=== PATIENT | female | born 1940 | race Caucasian/White ===

== ENCOUNTER → 2024-07-19 14:25 | Outpatient (REF) | payer OTHER, SELFPAY | LOC: HWRAD 14:25 | PROVIDERS: ATTENDING PHYSICIAN Obstetrics & Gynecology Gynecology; FAMILY PHYSICIAN Physician Assistant Medical | DX: Z78.0 Asymptomatic menopausal state (principal); Z12.31 Encounter for screening mammogram for malignant neoplasm of breast | CPT/HCPCS: 77063; 77067; 77080 ==

== ENCOUNTER 2024-09-21 09:44 | Emergency (ER) | payer OTHER, SELFPAY ==
[2024-09-21 09:47] VITALS: BP 187/88
[2024-09-21 10:07] VITALS: BMI 34.0
[2024-09-21 10:13] VITALS: BP 180/75
--- NOTE | 2024-09-21 10:14 | ED.GENMED ---
History of Present Illness
<Brenda Soto MD, Resident - Last Filed: 09/21/24 10:25>
General
Chief Complaint: Abdominal Pain
Time Seen by Provider: 09/21/24 09:53
History of Present Illness
History of Present Illness:
84-year-old female with past medical history of diverticulosis, hypothyroidism and endometrial cancer presenting to ED with lower abdominal pain since last night. Patient notes pain is intermittent and is not associated with movement or eating.
Notes constipation, last bowel movement was yesterday, and urinary frequency. Denies fever, chills, nausea vomiting, bloody stools, melena. Has not taken pain medications for her abdominal pain. No recent antibiotic use.
Past History
<Brenda Soto MD, Resident - Last Filed: 09/21/24 10:25>
Past History
ED Past Medical History: Hypothyroidism and Other (Diverticulosis)
ED Past Surgical History: Cholecystectomy and Gynecological (Hysterectomy, tubal ligation)
Social History
Personal:
Living: with family
Employment: Retired
Review of Systems
<Brenda Soto MD, Resident - Last Filed: 09/21/24 10:25>
Review of Systems
Constitutional: Reports no symptoms
EENT: Reports no symptoms
Respiratory: Reports no symptoms
Cardiac: Reports no symptoms
ABD/GI: Reports abdominal pain and constipated
: Reports frequency
Musculoskeletal: Reports edema (Bilateral lower extremities)
Skin: Reports no symptoms
Neurological: Reports no symptoms
Endocrine: Reports no symptoms
Hematologic/Lymphatic: Reports no symptoms
Psychiatric: Reports no symptoms
Phy Exam
<Brenda Soto MD, Resident - Last Filed: 09/21/24 10:25>
Physical Exam
Physical Exam:
GENERAL: Alert, in no apparent distress
EYE: pupils equal and reactive
NECK: Supple, no significant adenopathy.
ENT: o/p clr, mmm.
CARDIAC: Regular rate and rhythm .
LUNGS: Clear breath sounds bilaterally, no acute respiratory distress, no wheezes/rales/rhonchi
ABDOMEN: Soft, mild right lower quadrant tenderness, no r/g, no cvat
NEUROLOGICAL: Alert and oriented, no focal neuro deficits
SKIN: Warm and dry, skin intact.
MUSCULOSKELETAL: Pitting edema on bilateral distal lower extremities, well perfused.
PSYCH: Normal and appropriate interaction.
Course
<Brenda Soto MD, Resident - Last Filed: 09/21/24 10:25>
Orders/Labs/Results
Orders:
Orders
09/21/24 09:59
CT Abd/pelvis W Iv Cont Urgent
Comment: s/p cholecystectomy, hysterectomy
Reason For Exam: LLQ abd pain
09/21/24 10:04
Add On- LAB Urgent
Tests Added?: TSH
09/21/24 10:19
Complete Blood Count/With Diff Urgent
Comprehensive Metabolic Panel Urgent
TSH Urgent
Comment: ADD ON
Urinalysis Reflex To Culture Urgent
Date Specimen was Collected: 09/21/24
Time Specimen was Collected: 10:06
Vital Signs
Initial and Last Documented VS:
Initial Vital Signs
Temp Pulse Resp BP Pulse Ox
98.2 F 78 16 187/88 95
09/21/24 09:47 09/21/24 09:47 09/21/24 09:47 09/21/24 09:47 09/21/24 09:47
Last Documented Vital Signs
Temp Pulse Resp BP Pulse Ox
98.2 F 78 16 180/75 96
09/21/24 09:47 09/21/24 09:47 09/21/24 09:47 09/21/24 10:13 09/21/24 10:15
<Ant Centeno MD - Last Filed: 09/21/24 10:23>
Orders/Labs/Results
Orders:
Orders
09/21/24 09:59
CT Abd/pelvis W Iv Cont Urgent
Comment: s/p cholecystectomy, hysterectomy
Reason For Exam: LLQ abd pain
09/21/24 10:04
Add On- LAB Urgent
Tests Added?: TSH
09/21/24 10:19
Complete Blood Count/With Diff Urgent
Comprehensive Metabolic Panel Urgent
TSH Urgent
Comment: ADD ON
Urinalysis Reflex To Culture Urgent
Date Specimen was Collected: 09/21/24
Time Specimen was Collected: 10:06
Vital Signs
Initial and Last Documented VS:
Initial Vital Signs
Temp Pulse Resp BP Pulse Ox
98.2 F 78 16 187/88 95
09/21/24 09:47 09/21/24 09:47 09/21/24 09:47 09/21/24 09:47 09/21/24 09:47
Last Documented Vital Signs
Temp Pulse Resp BP Pulse Ox
98.2 F 78 16 180/75 96
09/21/24 09:47 09/21/24 09:47 09/21/24 09:47 09/21/24 10:13 09/21/24 10:15
<Brenda Soto MD, Resident - Last Filed: 09/21/24 10:25>
MDM/Problems Addressed
Differential Diagnosis Includes:
Diverticulitis
Appendicitis
UTI/pyelonephritis
Mesenteric adenitis
Nephrolithiasis
MDM/Problems Addressed:
- CBC, BMP
- TSH
- Abdomen Pelvis CT scan
- Urinalysis
<Brenda Soto MD, Resident - Last Filed: 09/21/24 10:25>
*Critical Care Note
Total Time (30-74mins, 75-104mins- exclusive of procedures): Not Applicable
ED Attending Note
<Brenda Soto MD, Resident - Last Filed: 09/21/24 10:25>
-
Portions of this chart may have been created with voice recognition software.� Occasional wrong word or��sound alike� substitutions may have occurred due to the inherent limitations of voice recognition software.
<Ant Centeno MD - Last Filed: 09/21/24 10:23>
ED Attending Note
Patient seen and examined by attending physician: Yes
I performed a history and physical exam of patient and discussed management with resident, I reviewed resident's note and agree with documented findings and plan of care.: Yes
ED Attending Note:
I have seen and evaluated the patient with a [id number] encounter. I have spoken to the resident and involved in the medical history, the physical exam, medical decision making.
Evaluation and management service: agree unless noted differently below.
Results interpretation: agree unless noted differently below.
Focused HPI: 84-year-old female with past medical history of diverticulosis, hypothyroidism who presents to the emergency department for evaluation of abdominal pain. Patient reports onset of symptoms around 9 PM last night and have been constant
although waxing waning intensity since then. She reports pain across the lower abdomen. Associated with mild constipation. No nausea or vomiting. No diarrhea. She does had some slight increased urinary frequency but no dysuria or hematuria.
She says she had similar symptoms with diverticulitis in the past. Prior surgical history of hysterectomy and cholecystectomy.
Physical exam: Awake alert not in distress. Hypertensive otherwise normal vitals. Abdomen soft, tender across lower abdomen with no peritoneal signs, no appreciable masses or hernias.
Medical Decision Makin-year-old female presents for evaluation of lower abdominal pain since last night. Vitals and exam as above. Check labs including a CBC and a CMP. Check urinalysis. Check CT abdomen. Monitor closely reassess after the
above.
Discharge Plan
Departure
Prescriptions:
No Action
levothyroxine 50 MCG tablet
50 mcg PO DAILY
npsdozf-iwgeqkajj-ckyq 1 EACH tablet
1 tab PO DAILY
cholecalciferol (vitamin D3) 2,000 UNIT tablet
2,000 unit PO DAILY
Lactobacillus acidophilus [Probiotic] 1 EACH capsule
1 ea PO DAILY
oxycodone-acetaminophen 5 MG/325 MG tablet
1 tab PO Q4HPRN PRN (Reason: pain) Qty: 15 0RF
ibuprofen 200 MG tablet
400 - 600 mg PO Q6HPRN PRN (Reason: pain) Qty: 0 0RF
docusate sodium [Colace] 100 MG capsule
100 mg PO BID Qty: 0 0RF
Rx Instructions:
if needed may use laxative such as miralax or milk of magnesia tomorrow 02/10/2015
psyllium husk [Metamucil] 0.52 GM capsule
0.52 gm PO DAILY Qty: 0 0RF
Rx Instructions:
hold until resume regular BMs
ciprofloxacin HCl [Cipro] 500 mg tablet
500 mg PO BID 10 Days Qty: 20 0RF
metronidazole 500 mg tablet
500 mg PO TID 10 Days Qty: 30 0RF
Interventions
Interventions:
*Risk Screen - Suicide Last Done: 09/21/24 09:50
*General Assessment Last Done: 09/21/24 09:50
*Neglect/Abuse Screening Last Done: 09/21/24 10:07
ED- Fall Risk Assessment Last Done: 09/21/24 10:07
*ED COVID-19 Vaccine History Last Done: 09/21/24 09:50
SN-Atdphx-Dfcvgvnytz Assessment Last Done: 09/21/24 10:07
Discharge Date and Time
Print Language: ARABIC
[2024-09-21 10:28] LABS: Urine Albumin Negative (Neg - Trace); Urine Bilirubin Negative (Negative); Urine Character Clear (Clear); Urine Color Yellow; Urine Glucose Negative (Negative); Urine Ketone Negative (Negative); Urine Leukocyte Negative (Negative); Urine Nitrite Negative (Negative); Urine Occult Blood Negative (Negative); Urine Specific Gravity 1.015 (<1.030); Urine Urobilinogen Negative (Neg - 1+)
[2024-09-21 10:29] LABS: % Basophils 0.4 % (0-2); % Eosinophils 0.6 % (0-6); % Immature Granulocytes 0.3 % (0-0.5); % Lymphocytes 14.8 % (20.5-51.1); % Monocytes 7.3 % (1.7-9.3); % Neutrophils 76.6 % (42.2-75.2); Absolute Eosinophils 0.1 10^3/uL (0-0.7); Absolute Lymphocytes 1.4 10^3/uL (1.2-3.4); Absolute Monocytes 0.7 10^3/uL (0.1-0.6); Absolute Neutrophils 7.2 10^3/uL (1.4-6.5); Hematocrit 44.9 % (37.0-47.0); Hemoglobin 14.8 g/dL (12.0-16.0); Mean Corpuscular Hgb 29.4 pg (27.0-31.0); Mean Corpuscular Volume 89.3 fL (81.0-99.0); Mean Platelet Volume 10.3 fL (7.4-10.4); Nucleated Red Blood Cells % 0 %; Platelet Count 168 10^3/uL (130-400); Red Blood Cell Count 5.03 10^6/uL (4.20-5.40); Red Cell Dist. Width 13.1 % (11.5-14.5); White Blood Cell Count 9.4 10^3/uL (4.8-10.8)
[2024-09-21 10:42] LABS: ALT (SGPT) 21 U/L (0-35); AST (SGOT) 28 U/L (14-36); Albumin 4.5 g/dl (3.5-5.0); Alkaline Phosphatase 84 U/L (38-126); Blood Urea Nitrogen 12 mg/dl (7-17); Calcium 9.3 mg/dl (8.4-10.2); Carbon Dioxide 31 mmol/L (22-30); Chloride 99 mmol/L (98-107); Estimated Creatinine Clearance 70 ml/min; Glucose 110 mg/dl (70-99); Potassium 4.3 mmol/L (3.5-5.1); Sodium 142 mmol/L (135-145); Total Bilirubin 1.8 mg/dl (0.2-1.3); Total Protein 7.5 g/dl (6.3-8.2); eGFR > 60.00
[2024-09-21 11:00] VITALS: BP 161/76
[2024-09-21 11:13] LABS: TSH 5.02 uIU/ml (0.47-4.68)
[2024-09-21] MEDS: FLAGYL 500 MG PO (12:12)
[2024-09-21] MEDS: CIPRO 500 MG PO (12:12)
== END 2024-09-21 12:22 | disposition home or self-care (01) ==
LOC: EMR 09:44
PROVIDERS: EMERGENCY PHYSICIAN Emergency Medicine; FAMILY PHYSICIAN Physician Assistant Medical
DX: K57.32 Diverticulitis of large intestine without perforation or abscess without bleeding (principal); E03.9 Hypothyroidism, unspecified; Z85.42 Personal history of malignant neoplasm of other parts of uterus; Z90.49 Acquired absence of other specified parts of digestive tract; Z90.710 Acquired absence of both cervix and uterus
CPT/HCPCS: 99284; 74177; 80053; 81003; 84443; 85025; Q9967